=== PATIENT | male | born 1965 | race African-American/Black ===

== ENCOUNTER 2019-04-28 04:50 | Inpatient (IN) | payer MEDICARE, MEDICAID ==
[2019-04-27 14:17] LABS: INTERNATIONAL NORMALIZED RATIO 0.89 (0.93-1.1); PROTHROMBIN TIME 9.4 Seconds (9.6-11.5)
[2019-04-27 14:18] LABS: ALANINE AMINOTRANSFERASE 17 U/L (12-78); ALBUMIN 1.3 g/dL (3.4-5.0); ANION GAP 4 mmol/L (5-15); CALCIUM 7.8 mg/dL (8.5-10.1); CHLORIDE 112 mmol/L (98-107)
[2019-04-27 14:20] LABS: ALKALINE PHOSPHATASE 69 U/L (45-117); BILIRUBIN,TOTAL 0.6 mg/dL (0.2-1.0); CREATININE 2.21 mg/dL (0.7-1.3); TOTAL PROTEIN 5.1 g/dL (6.4-8.2)
[2019-04-27 14:28] LABS: MICROSCOPIC INDICATED
[2019-04-27 15:04] LABS: BASOPHILS % (AUTO) 0 % (0-1); EOSINOPHILS # (AUTO) 0.07 x10^3/uL (0-0.4); EOSINOPHILS % (AUTO) 1 % (1-7); LYMPHOCYTES # (AUTO) 2.68 x10^3/uL (1-3.4); LYMPHOCYTES % (AUTO) 20 % (22-44); MD SCAN; MEAN CORPUSCULAR HEMOGLOBIN 32.8 pg (27.5-34.5); MEAN CORPUSCULAR HGB CONC 32.6 g/dL (33.2-36.2); MEAN CORPUSCULAR VOLUME 100.6 fL (81-97); MONOCYTES # (AUTO) 1.12 x10^3/uL (0.2-0.8); MONOCYTES % (AUTO) 8 % (2-9); NEUTROPHILS # (AUTO) 9.81 x10^3/uL (1.8-6.8); NEUTROPHILS % (AUTO) 72 % (42-75); PLATELET COUNT 346 x10^3/uL (130-400); RED BLOOD COUNT 3.75 x10^6/uL (4.38-5.82); RED CELL DISTRIBUTION WIDTH 15.3 % (9.4-14.8)
[~2019-04-28] VITALS: Ht 172.7 cm; Wt 100.9 kg
[~2019-04-28 04:50] MED LIST: ACET325T26 PO; ASPI-650 PO; ATOR40TA78 PO; CARV12.52 PO; DOXY100T PO; FURO40TA6 PO; HYDR-3342 PO; ISOS60TA36 PO; NITR0.4T28 SL; None per pt; POTA10TA5 PO
[2019-04-28 05:22] VITALS: BP_SYST 164; BP_SYST 169; BP_DIAS 90; BP_DIAS 95
[2019-04-28] MEDS ORDERED: INSULIN LISPRO 100 UNITS/ML, PEN SQ-INSULIN SCH (05:30)
[2019-04-28] MEDS ORDERED: DO NOT GIVE MC SCH (05:30)
[2019-04-28] MEDS ORDERED: CHLORHEXIDINE 15 ML UDC MM SCH (05:30)
[2019-04-28] MEDS ORDERED: PHENYLEPHRINE 10 MG in SODIUM CHLORIDE 0.9% 249 ML IV PRN ×2 (07:30→12:58)
[2019-04-28] MEDS ORDERED: ALBUMIN HUMAN 5% 500 ML IV PRN (07:30)
[2019-04-28] MEDS ORDERED: REGULAR INSULIN 62.5 UNITS in SODIUM CHLORIDE 0.9% 249.375 ML IV PRN ×2 (07:30→12:58)
[2019-04-28] MEDS ORDERED: EPINEPHRINE 2 MG in SODIUM CHLORIDE 0.9% 248 ML IV SCH (07:30)
[2019-04-28] MEDS ORDERED: CEFUROXIME 1.5 GM in SODIUM CHLORIDE 0.9% 50 ML IVPB PRN (07:30)
[2019-04-28] MEDS ORDERED: VANCOMYCIN 1,300 MG in SODIUM CHLORIDE 0.9% 250 ML IV PRN (07:30)
[2019-04-28] MEDS ORDERED: MANNITOL PMX 20% 500 ML IVPB PRN (07:30)
[2019-04-28] MEDS ORDERED: POTASSIUM CHLORIDE 80 MEQ, SODIUM BICARBONATE 8.4% 10 MEQ, MAGNESIUM SULFATE 0.5 GM, LI... IV PRN (07:30)
[2019-04-28] MEDS ORDERED: DEXMEDETOMIDINE 200 MCG in SODIUM CHLORIDE 0.9% 48 ML IV SCH (07:30)
[2019-04-28] MEDS ORDERED: MIDAZOLAM 10MG/2 ML ONE (07:33)
[2019-04-28] MEDS ORDERED: FENTANYL PF 250 MCG/5ML ONE ×6 (07:33→10:20)
[2019-04-28] MEDS ORDERED: PROPOFOL 10 MG/ML, 20ML ONE (07:33)
[2019-04-28] MEDS ORDERED: AMINOCAPROIC ACID 250 MG/ML, 20ML ONE ×2 (07:34)
[2019-04-28] MEDS ORDERED: ROCURONIUM 10MG/ML,5ML ONE ×3 (07:34→10:19)
[2019-04-28] MEDS ORDERED: FUROSEMIDE 20 MG/2 ML ONE (07:51)
[2019-04-28] MEDS: DOCUSATE 100 MG CAPSULE PO SCH ×2 (09:00→21:00)
[2019-04-28] MEDS ORDERED: SODIUM CHLORIDE FLUSH 10ML SYR IVF SCH (09:00)
[2019-04-28] MEDS ORDERED: MUPIROCIN OINT 2%, 22GM TP SCH (09:00)
[2019-04-28] MEDS ORDERED: MAGNESIUM SULFATE PMX 2GM/50ML 0 ML ONE (09:27)
[2019-04-28] MEDS ORDERED: PROTAMINE SULFATE 10 MG/ML, 25ML ONE ×2 (10:20)
[2019-04-28] MEDS ORDERED: HYDROmorphone 2 MG/ML, 1ML ONE (10:30)
[2019-04-28] MEDS ORDERED: AMIODARONE 50 MG/ML, 3ML ONE (10:57)
[2019-04-28] MEDS ORDERED: SODIUM BICARB 8.4%, 50ML SYRINGE ONE ×2 (11:43→13:14)
[2019-04-28] MEDS ORDERED: SODIUM BICARBONATE 1 MEQ/ML, 50ML VIAL ONE (12:23)
[2019-04-28] MEDS ORDERED: methylPREDNISolone SOD SUCC 125 MG/2 ML ONE (12:23)
[2019-04-28] MEDS ORDERED: ALBUMIN HUMAN 25% 50 ML ONE (12:24)
[2019-04-28] MEDS ORDERED: HEPARIN 1,000 UNITS/ML, 30ML ONE (12:24)
[2019-04-28] MEDS ORDERED: POTASSIUM CHLORIDE 40MEQ/20ML IV ONE (12:24)
[2019-04-28] MEDS ORDERED: LIDOCAINE 2%, 20ML ONE (12:24)
[2019-04-28] MEDS ORDERED: DOBUTAMINE 250 MG in SODIUM CHLORIDE 0.9% 230 ML IV PRN (12:58)
[2019-04-28] MEDS ORDERED: SODIUM CHLORIDE 0.9% 1,000 ML IV PRN (12:58)
[2019-04-28] MEDS ORDERED: NITROGLYCERIN/D5W PMX 250 ML IV PRN (12:58)
[2019-04-28] MEDS ORDERED: VASOPRESSIN 50 UNIT in SODIUM CHLORIDE 0.9% 247.5 ML IV PRN (12:58)
[2019-04-28] MEDS ORDERED: PROCHLORPERAZINE 5 MG/ML, 2ML IVPush PRN (13:00)
[2019-04-28] MEDS ORDERED: HYDROcodone/APAP 5/325 TABLET PO PRN (13:00)
[2019-04-28] MEDS ORDERED: BISACODYL 10 MG SUPP PR PRN (13:00)
[2019-04-28] MEDS ORDERED: OXYcodone IR 5MG TABLET PO PRN (13:00)
[2019-04-28] MEDS ORDERED: SODIUM BICARB 8.4%, 50ML SYRINGE IV PRN (13:00)
[2019-04-28] MEDS ORDERED: ACETAMINOPHEN 650 MG SUPP PR PRN (13:00)
[2019-04-28] MEDS ORDERED: DEXTROSE 50%, 50ML SYRINGE IVPush PRN (13:00)
[2019-04-28] MEDS: KSCALE TO 4.5 IV SCH ×2 (13:00→19:00)
[2019-04-28] MEDS ORDERED: ONDANSETRON 2MG/ML, 2ML IVPush PRN (13:00)
[2019-04-28] MEDS ORDERED: CEFUROXIME 1.5 GM in SODIUM CHLORIDE 0.9% 50 ML IVPB SCH (13:00)
[2019-04-28] MEDS ORDERED: BISACODYL 5 MG EC TABLET PO PRN (13:00)
[2019-04-28] MEDS ORDERED: DEXTROSE 4 GM TAB.CHEW PO PRN (13:00)
[2019-04-28] MEDS ORDERED: ACETAMINOPHEN 325 MG TABLET PO PRN (13:00)
[2019-04-28] MEDS ORDERED: GLUCAGON 1 MG IM PRN (13:00)
[2019-04-28] MEDS ORDERED: INSULIN REGULAR 100 UNITS/ML, 3ML VIAL IVPush PRN (13:00)
[2019-04-28] MEDS: MAGNESIUM SULFATE 1 GM in SODIUM CHLORIDE 0.9% 50 ML IVPB SCH (13:00)
[2019-04-28 13:08] LABS: GLUCOSE BY BLOOD GAS ANALYZER 172 mg/dL (70-110); HEMOGLOBIN BY BLOOD GAS ANALYZ 13.7 g/dL (14.0-18.0); POTASSIUM BY BLOOD GAS ANALYZR 2.6 mmol/L (3.6-5.5)
[2019-04-28] MEDS ORDERED: MORPHINE SULFATE 4 MG/ML, 1ML ONE ×2 (13:19→20:54)
[2019-04-28 13:20] LABS: INTERNATIONAL NORMALIZED RATIO 1.02 (0.93-1.1); PROTHROMBIN TIME 10.7 Seconds (9.6-11.5)
[2019-04-28] MEDS ORDERED: POTASSIUM CHLORIDE 40 MEQ in SODIUM CHLORIDE 0.9% 100 ML IV ONE (13:30)
[2019-04-28] MEDS ORDERED: MIDAZOLAM 1 MG/ML, 2ML ONE ×2 (13:43→16:54)
[2019-04-28] MEDS: morphine SULFATE 10 MG/ML, 1ML IVPush PRN ×3 (13:45→23:32)
[2019-04-28] MEDS: FENTANYL PF 100 MCG/2ML IVPush PRN ×2 (13:47→15:59)
[2019-04-28] MEDS: MIDAZOLAM 1 MG/ML, 5ML IVPush PRN ×2 (13:50→15:27)
[2019-04-28] MEDS: DEXMEDETOMIDINE 200 MCG in SODIUM CHLORIDE 0.9% 48 ML IV PRN (13:52)
[2019-04-28] MEDS ORDERED: ALBUTEROL SULFATE 2.5 MG/3 ML ONE (14:55)
[2019-04-28] MEDS ORDERED: ALBUTEROL SULFATE 2.5 MG/3 ML NPPB ONE (16:00)
[2019-04-28] MEDS: INSULIN LISPRO 100 UNITS/ML, PEN SQ-INSULIN SCH ×2 (16:00→21:00)
[2019-04-28] MEDS ORDERED: MIDAZOLAM 1 MG/ML, 5ML IVPush PRN (16:00)
[2019-04-28] MEDS ORDERED: FENTANYL PF 100 MCG/2ML IVPush PRN (16:30)
[2019-04-28] MEDS ORDERED: LIDOCAINE-MPF 1%, 2ML ONE (16:46)
[2019-04-28 17:39] VITALS: BP 99/52
[2019-04-28] MEDS: LACTATED RINGERS 1,000 ML IV PRN ×3 (17:49→23:59)
[2019-04-28 17:55] VITALS: BP 103/56
[2019-04-28 18:13] VITALS: BP 113/62
[2019-04-28] MEDS: VANCOMYCIN 1,300 MG in SODIUM CHLORIDE 0.9% 250 ML IVPB SCH (18:51)
[2019-04-28 18:54] LABS: INTERNATIONAL NORMALIZED RATIO 0.97 (0.93-1.1); PROTHROMBIN TIME 10.2 Seconds (9.6-11.5)
[2019-04-28] MEDS ORDERED: SODIUM BICARB 8.4%, 50ML SYRINGE IVPush ONE (19:00)
[2019-04-28] MEDS ORDERED: POTASSIUM CHLORIDE PMX 100 ML IV ONE (19:00)
[2019-04-28 19:15] VITALS: BP 114/62
[2019-04-28] MEDS: SODIUM CHLORIDE FLUSH 10ML SYR IVF SCH (19:16)
[2019-04-28] MEDS ORDERED: ALBUTEROL SULFATE 2.5 MG/3 ML NPPB PRN (19:30)
[2019-04-28] MEDS: CEFUROXIME 1.5 GM in SODIUM CHLORIDE 0.9% 50 ML IVPB SCH (20:35)
[2019-04-28] MEDS: PROPOFOL 100 ML IV PRN (21:09)
[2019-04-28] MEDS: MUPIROCIN OINT 2%, 22GM NAS SCH (21:33)
[2019-04-29] MEDS: KSCALE TO 4.5 IV SCH ×2 (01:00→07:00)
[2019-04-29] MEDS ORDERED: POTASSIUM CHLORIDE PMX 100 ML IVPB SCH (01:00)
[2019-04-29] MEDS: morphine SULFATE 10 MG/ML, 1ML IVPush PRN (02:13)
[2019-04-29] MEDS: EPINEPHRINE 2 MG in SODIUM CHLORIDE 0.9% 248 ML IV PRN ×2 (02:14→19:21)
[2019-04-29] MEDS: INSULIN LISPRO 100 UNITS/ML, PEN SQ-INSULIN SCH ×4 (05:08→21:00)
[2019-04-29 06:49] LABS: ANION GAP 9 mmol/L (5-15); CALCIUM 6.7 mg/dL (8.5-10.1); CHLORIDE 117 mmol/L (98-107); CREATININE 2.92 mg/dL (0.7-1.3)
[2019-04-29 06:50] LABS: ALBUMIN 1.2 g/dL (3.4-5.0)
[2019-04-29 06:51] LABS: MEAN CORPUSCULAR HEMOGLOBIN 31.8 pg (27.5-34.5); MEAN CORPUSCULAR HGB CONC 33.4 g/dL (33.2-36.2); MEAN CORPUSCULAR VOLUME 95.2 fL (81-97); MEAN PLATELET VOLUME 8.2 fL (7.4-10.4); PLATELET COUNT 165 x10^3/uL (130-400); RED BLOOD COUNT 2.75 x10^6/uL (4.38-5.82); RED CELL DISTRIBUTION WIDTH 16.2 % (9.4-14.8)
[2019-04-29 06:53] LABS: INTERNATIONAL NORMALIZED RATIO 0.92 (0.93-1.1); PROTHROMBIN TIME 9.7 Seconds (9.6-11.5)
[2019-04-29 07:05] LABS: FIO2 80 %
[2019-04-29 07:22] LABS: BASOPHILS # (AUTO) 0.01 x10^3/uL (0-0.1); BASOPHILS % (AUTO) 0 % (0-1); EOSINOPHILS % (AUTO) 0 % (1-7); LYMPHOCYTES # (AUTO) 1.08 x10^3/uL (1-3.4); LYMPHOCYTES % (AUTO) 8 % (22-44); MD SCAN; MONOCYTES # (AUTO) 1.28 x10^3/uL (0.2-0.8); MONOCYTES % (AUTO) 9 % (2-9); NEUTROPHILS % (AUTO) 83 % (42-75)
[2019-04-29] MEDS: VANCOMYCIN 1,300 MG in SODIUM CHLORIDE 0.9% 250 ML IVPB SCH (07:25)
[2019-04-29] MEDS ORDERED: POTASSIUM CHLORIDE PMX 100 ML IVPB ONE (07:30)
[2019-04-29] MEDS: ASPIRIN 81 MG TABLET EC PO SCH (09:00)
[2019-04-29] MEDS: FENTANYL PF 100 MCG/2ML IVPush PRN ×4 (09:00→16:38)
[2019-04-29] MEDS: DOCUSATE 100 MG CAPSULE PO SCH ×2 (09:00→21:00)
[2019-04-29] MEDS: MUPIROCIN OINT 2%, 22GM NAS SCH ×2 (09:00→21:32)
[2019-04-29] MEDS: PROPOFOL 100 ML IV PRN ×3 (09:01→19:22)
[2019-04-29] MEDS: SODIUM CHLORIDE FLUSH 10ML SYR IVF SCH ×2 (10:09→21:31)
[2019-04-29] MEDS: CEFUROXIME 1.5 GM in SODIUM CHLORIDE 0.9% 50 ML IVPB SCH (10:13)
[2019-04-29] MEDS: MAGNESIUM SULFATE 1 GM in SODIUM CHLORIDE 0.9% 50 ML IVPB SCH (13:00)
--- NOTE | 2019-04-29 14:08 | NUR ---
TF GOAL if needed: w/ propofol: PROMOTE @ 75ML/HR off propofol: 80ml/hr
[2019-04-29] MEDS: MIDAZOLAM 1 MG/ML, 5ML IVPush PRN (17:43)
[2019-04-29 18:45] LABS: POTASSIUM,URINE RANDOM 60 mmol/L; SODIUM,URINE RANDOM 8 mmol/L
[2019-04-29 18:50] LABS: CHLORIDE,URINE RANDOM < 10 mmol/L
[2019-04-29] MEDS ORDERED: SODIUM CHLORIDE 0.9% 1,000ML IVBOLUS PRN (20:00)
[2019-04-29] MEDS: CHLORHEXIDINE 15 ML UDC MM SCH (21:00)
[2019-04-30] MEDS: PROPOFOL 100 ML IV PRN ×4 (01:53→21:58)
[2019-04-30 04:44] LABS: BASOPHILS # (AUTO) 0.01 x10^3/uL (0-0.1); BASOPHILS % (AUTO) 0 % (0-1); EOSINOPHILS # (AUTO) 0.03 x10^3/uL (0-0.4); EOSINOPHILS % (AUTO) 0 % (1-7); LYMPHOCYTES # (AUTO) 1.32 x10^3/uL (1-3.4); LYMPHOCYTES % (AUTO) 9 % (22-44); MD NO; MEAN CORPUSCULAR HEMOGLOBIN 32.4 pg (27.5-34.5); MEAN CORPUSCULAR HGB CONC 33.2 g/dL (33.2-36.2); MEAN CORPUSCULAR VOLUME 97.7 fL (81-97); MEAN PLATELET VOLUME 8.4 fL (7.4-10.4); MONOCYTES # (AUTO) 1.33 x10^3/uL (0.2-0.8); MONOCYTES % (AUTO) 9 % (2-9); NEUTROPHILS # (AUTO) 12.22 x10^3/uL (1.8-6.8); NEUTROPHILS % (AUTO) 82 % (42-75); PLATELET COUNT 173 x10^3/uL (130-400); RED CELL DISTRIBUTION WIDTH 16.4 % (9.4-14.8)
[2019-04-30 04:50] LABS: INTERNATIONAL NORMALIZED RATIO 0.91 (0.93-1.1); PROTHROMBIN TIME 9.6 Seconds (9.6-11.5)
[2019-04-30 04:51] LABS: ANION GAP 9 mmol/L (5-15); CALCIUM 6.9 mg/dL (8.5-10.1); CHLORIDE 117 mmol/L (98-107); CREATININE 3.69 mg/dL (0.7-1.3)
[2019-04-30] MEDS: INSULIN LISPRO 100 UNITS/ML, PEN SQ-INSULIN SCH ×4 (05:19→21:00)
[2019-04-30] MEDS: FENTANYL PF 100 MCG/2ML IVPush PRN ×3 (07:25→16:37)
[2019-04-30] MEDS: DOCUSATE 100 MG CAPSULE PO SCH ×2 (08:25→20:52)
[2019-04-30] MEDS: CHLORHEXIDINE 15 ML UDC MM SCH ×2 (08:25→20:53)
[2019-04-30] MEDS: ASPIRIN 81 MG TABLET EC PO SCH (08:25)
[2019-04-30] MEDS ORDERED: METOPROLOL TARTRATE 25 MG TABLET ONE (10:39)
[2019-04-30] MEDS: SODIUM CHLORIDE FLUSH 10ML SYR IVF SCH ×2 (10:43→21:07)
[2019-04-30] MEDS: METOPROLOL TARTRATE 25 MG TABLET PO SCH ×2 (10:44→18:00)
[2019-04-30] MEDS: MUPIROCIN OINT 2%, 22GM NAS SCH ×2 (10:44→21:07)
[2019-04-30] MEDS: MAGNESIUM SULFATE 1 GM in SODIUM CHLORIDE 0.9% 50 ML IVPB SCH (10:46)
[2019-04-30] MEDS: DEXMEDETOMIDINE 200 MCG in SODIUM CHLORIDE 0.9% 48 ML IV PRN (16:10)
[2019-05-01] MEDS: PROPOFOL 100 ML IV PRN (02:50)
[2019-05-01 04:54] LABS: MEAN CORPUSCULAR HEMOGLOBIN 32.6 pg (27.5-34.5); MEAN CORPUSCULAR HGB CONC 33.2 g/dL (33.2-36.2); MEAN CORPUSCULAR VOLUME 98.1 fL (81-97); MEAN PLATELET VOLUME 8.5 fL (7.4-10.4); PLATELET COUNT 204 x10^3/uL (130-400); RED BLOOD COUNT 2.44 x10^6/uL (4.38-5.82)
[2019-05-01 04:57] LABS: ANION GAP 8 mmol/L (5-15); CALCIUM 7.5 mg/dL (8.5-10.1); CHLORIDE 117 mmol/L (98-107); CREATININE 3.58 mg/dL (0.7-1.3)
[2019-05-01 05:33] LABS: MD YES
[2019-05-01 05:35] LABS: ANISOCYTOSIS 1+; LYMPH#(MANUAL) 2.03 x10^3/uL (1-3.4); LYMPHS% (MANUAL) 15 % (22-44); MONOS#(MANUAL) 0.81 x10^3/uL (0.3-2.7); MONOS% (MANUAL) 6 % (2-9); NRBC % (MANUAL) 1 % (0-1); SEG#(MANUAL) 10.67 x10^3/uL (1.8-6.8); SEGS% (MANUAL) 79 % (42-75)
[2019-05-01 05:36] LABS: <PLATELET ESTIMATE> ADEQUATE; <PLT MORPHOLOGY> NORMAL PLT MORPH; POLYCHROMASIA 1+
[2019-05-01] MEDS: INSULIN LISPRO 100 UNITS/ML, PEN SQ-INSULIN SCH ×4 (06:21→21:00)
[2019-05-01] MEDS: METOPROLOL TARTRATE 25 MG TABLET PO SCH ×2 (06:28→17:36)
[2019-05-01] MEDS: CHLORHEXIDINE 15 ML UDC MM SCH (11:23)
[2019-05-01] MEDS: DOCUSATE 100 MG CAPSULE PO SCH ×2 (11:23→21:11)
[2019-05-01] MEDS: ASPIRIN 81 MG TABLET EC PO SCH (11:23)
[2019-05-01] MEDS: MUPIROCIN OINT 2%, 22GM NAS SCH ×2 (11:23→21:11)
[2019-05-01] MEDS: SODIUM CHLORIDE FLUSH 10ML SYR IVF SCH ×2 (11:24→21:11)
[2019-05-01] MEDS: HYDROcodone/APAP 10/325 MG TABLET PO PRN (17:37)
[2019-05-02] MEDS: HYDROcodone/APAP 10/325 MG TABLET PO PRN ×4 (00:01→20:52)
[2019-05-02 04:50] LABS: BASOPHILS % (AUTO) 0 % (0-1); EOSINOPHILS # (AUTO) 0.37 x10^3/uL (0-0.4); EOSINOPHILS % (AUTO) 3 % (1-7); LYMPHOCYTES # (AUTO) 2.03 x10^3/uL (1-3.4); LYMPHOCYTES % (AUTO) 16 % (22-44); MD NO; MEAN CORPUSCULAR HEMOGLOBIN 32.9 pg (27.5-34.5); MEAN CORPUSCULAR HGB CONC 33.3 g/dL (33.2-36.2); MEAN CORPUSCULAR VOLUME 98.6 fL (81-97); MEAN PLATELET VOLUME 8.2 fL (7.4-10.4); MONOCYTES % (AUTO) 9 % (2-9); NEUTROPHILS # (AUTO) 9.38 x10^3/uL (1.8-6.8); NEUTROPHILS % (AUTO) 73 % (42-75); PLATELET COUNT 269 x10^3/uL (130-400); RED BLOOD COUNT 2.61 x10^6/uL (4.38-5.82); RED CELL DISTRIBUTION WIDTH 16.1 % (9.4-14.8)
[2019-05-02] MEDS: METOPROLOL TARTRATE 25 MG TABLET PO SCH ×2 (05:16→18:11)
[2019-05-02 05:59] LABS: ANION GAP 6 mmol/L (5-15); CALCIUM 7.3 mg/dL (8.5-10.1); CHLORIDE 110 mmol/L (98-107); CREATININE 3.45 mg/dL (0.7-1.3)
[2019-05-02] MEDS: INSULIN LISPRO 100 UNITS/ML, PEN SQ-INSULIN SCH ×2 (07:00→11:00)
[2019-05-02] MEDS: MUPIROCIN OINT 2%, 22GM NAS SCH ×2 (09:08→20:52)
[2019-05-02] MEDS: DOCUSATE 100 MG CAPSULE PO SCH ×2 (09:08→20:52)
[2019-05-02] MEDS: ASPIRIN 81 MG TABLET EC PO SCH (09:08)
[2019-05-02] MEDS: AMLODIPINE 10 MG TAB PO SCH (09:08)
[2019-05-02] MEDS: SODIUM CHLORIDE FLUSH 10ML SYR IVF SCH ×2 (09:08→20:53)
[2019-05-02 13:35] VITALS: BP 121/78
[2019-05-02 20:50] VITALS: BP 136/88
[2019-05-03 00:29] VITALS: BP 149/87
[2019-05-03 05:12] VITALS: BP 146/94
[2019-05-03] MEDS: METOPROLOL TARTRATE 25 MG TABLET PO SCH ×2 (05:13→16:56)
[2019-05-03 05:54] LABS: BASOPHILS % (AUTO) 0 % (0-1); EOSINOPHILS # (AUTO) 0.37 x10^3/uL (0-0.4); EOSINOPHILS % (AUTO) 3 % (1-7); LYMPHOCYTES # (AUTO) 1.84 x10^3/uL (1-3.4); LYMPHOCYTES % (AUTO) 16 % (22-44); MD NO; MEAN CORPUSCULAR HEMOGLOBIN 32.4 pg (27.5-34.5); MEAN CORPUSCULAR HGB CONC 33.3 g/dL (33.2-36.2); MEAN CORPUSCULAR VOLUME 97.5 fL (81-97); MEAN PLATELET VOLUME 7.9 fL (7.4-10.4); MONOCYTES # (AUTO) 1.04 x10^3/uL (0.2-0.8); MONOCYTES % (AUTO) 9 % (2-9); NEUTROPHILS # (AUTO) 8.39 x10^3/uL (1.8-6.8); NEUTROPHILS % (AUTO) 72 % (42-75); PLATELET COUNT 304 x10^3/uL (130-400); RED BLOOD COUNT 2.53 x10^6/uL (4.38-5.82); RED CELL DISTRIBUTION WIDTH 15.6 % (9.4-14.8)
[2019-05-03 10:35] LABS: ANION GAP 8 mmol/L (5-15); CHLORIDE 109 mmol/L (98-107); CREATININE 3.27 mg/dL (0.7-1.3)
[2019-05-03] MEDS: ASPIRIN 81 MG TABLET EC PO SCH (11:12)
[2019-05-03] MEDS: DOCUSATE 100 MG CAPSULE PO SCH ×2 (11:13→21:02)
[2019-05-03] MEDS: AMLODIPINE 10 MG TAB PO SCH (11:13)
[2019-05-03] MEDS: MUPIROCIN OINT 2%, 22GM NAS SCH (11:16)
[2019-05-03] MEDS: SODIUM CHLORIDE FLUSH 10ML SYR IVF SCH ×2 (11:24→21:03)
[2019-05-03] MEDS ORDERED: POTASSIUM CHLORIDE 20 MEQ TAB.ER.PRT PO ONE (11:30)
[2019-05-03] MEDS: HEPARIN 5,000 UNITS/ML, 1ML SQ SCH ×2 (12:28→21:02)
[2019-05-03 14:34] VITALS: BP 134/83
[2019-05-03] MEDS: POTASSIUM CHLORIDE 20 MEQ TAB.ER.PRT PO SCH (16:55)
[2019-05-03 19:50] VITALS: BP 137/82
[2019-05-04] MEDS: HYDROcodone/APAP 10/325 MG TABLET PO PRN ×3 (00:25→20:32)
[2019-05-04 01:35] VITALS: BP 145/81
[2019-05-04] MEDS: HEPARIN 5,000 UNITS/ML, 1ML SQ SCH ×3 (05:34→20:32)
[2019-05-04] MEDS: METOPROLOL TARTRATE 25 MG TABLET PO SCH ×2 (05:34→18:50)
[2019-05-04 05:58] LABS: ANION GAP 7 mmol/L (5-15); CALCIUM 7.5 mg/dL (8.5-10.1); CHLORIDE 109 mmol/L (98-107); CREATININE 3.29 mg/dL (0.7-1.3)
[2019-05-04 08:11] VITALS: BP 143/91
[2019-05-04] MEDS: ASPIRIN 81 MG TABLET EC PO SCH (08:54)
[2019-05-04] MEDS: POTASSIUM CHLORIDE 20 MEQ TAB.ER.PRT PO SCH (08:54)
[2019-05-04] MEDS: DOCUSATE 100 MG CAPSULE PO SCH ×2 (08:55→20:32)
[2019-05-04] MEDS: AMLODIPINE 10 MG TAB PO SCH (08:55)
[2019-05-04] MEDS: SODIUM CHLORIDE FLUSH 10ML SYR IVF SCH ×2 (08:56→20:32)
[2019-05-04] MEDS ORDERED: POTASSIUM CHLORIDE 20 MEQ TAB.ER.PRT PO ONE (09:30)
[2019-05-04] MEDS: FUROSEMIDE 20 MG TABLET PO SCH (11:35)
[2019-05-04] MEDS ORDERED: FURO20TA3 PO (14:40)
[2019-05-04] MEDS ORDERED: ASPI81TA45 PO (14:40)
[2019-05-04] MEDS ORDERED: AMLO10TA8 PO (14:40)
[2019-05-04] MEDS ORDERED: HYDR-3237 PO (14:40)
[2019-05-04] MEDS ORDERED: POTA20TA6 PO (14:40)
[2019-05-04] MEDS ORDERED: METO25TA35 PO (14:40)
[2019-05-04 15:54] VITALS: BP 129/81
[2019-05-04 18:40] VITALS: BP_SYST 129; BP_SYST 143; BP_DIAS 81; BP_DIAS 82
[2019-05-05 01:38] VITALS: BP 145/92
[2019-05-05] MEDS: HEPARIN 5,000 UNITS/ML, 1ML SQ SCH ×2 (05:00→13:02)
[2019-05-05] MEDS: HYDROcodone/APAP 10/325 MG TABLET PO PRN (05:00)
[2019-05-05] MEDS: METOPROLOL TARTRATE 25 MG TABLET PO SCH (05:01)
[2019-05-05 07:38] LABS: ANION GAP 8 mmol/L (5-15); CALCIUM 7.5 mg/dL (8.5-10.1); CHLORIDE 110 mmol/L (98-107); CREATININE 3.25 mg/dL (0.7-1.3)
[2019-05-05 08:23] VITALS: BP 141/83
[2019-05-05] MEDS: AMLODIPINE 10 MG TAB PO SCH (08:45)
[2019-05-05] MEDS: ASPIRIN 81 MG TABLET EC PO SCH (08:45)
[2019-05-05] MEDS: DOCUSATE 100 MG CAPSULE PO SCH (08:46)
[2019-05-05] MEDS: SODIUM CHLORIDE FLUSH 10ML SYR IVF SCH (08:46)
[2019-05-05] MEDS: FUROSEMIDE 20 MG TABLET PO SCH (08:46)
[2019-05-05] MEDS ORDERED: POTASSIUM CHLORIDE 20 MEQ TAB.ER.PRT PO SCH (09:00)
[2019-05-05] MEDS ORDERED: FUROSEMIDE 40 MG TABLET PO SCH (09:00)
[2019-05-05] MEDS ORDERED: FUROSEMIDE 10 MG/ML ORAL SOL PO ONE (10:00)
[2019-05-05] MEDS ORDERED: FUROSEMIDE 20 MG TABLET ONE (10:02)
[2019-05-05] MEDS ORDERED: FURO40TA6 PO (10:28)
[2019-05-05] MEDS ORDERED: FUROSEMIDE 20 MG TABLET PO ONE (10:30)
[2019-05-05 12:46] VITALS: BP 137/78
== END 2019-05-05 14:05 | DRG 219 ==
LOC: 5SO 04:50 → CSU 10:07 → 5SO 05-02 12:39
PROVIDERS: ADMIT Thoracic Surgery (Cardiothoracic Vascular Surgery); ATTEND Thoracic Surgery (Cardiothoracic Vascular Surgery)
PROC: B24BZZ4 Ultrasonography of Heart with Aorta, Transesophageal (ICD-10-PCS; 2019-04-28)
PROC: 5A1221Z Performance of Cardiac Output, Continuous (ICD-10-PCS; 2019-04-28)
PROC: 0BJ08ZZ Inspection of Tracheobronchial Tree, Via Natural or Artificial Opening Endoscopic (ICD-10-PCS; 2019-04-28)
PROC: 30233N1 Transfusion of Nonautologous Red Blood Cells into Peripheral Vein, Percutaneous Approach (ICD-10-PCS; 2019-04-28)
PROC: 03HY32Z Insertion of Monitoring Device into Upper Artery, Percutaneous Approach (ICD-10-PCS; 2019-04-28)
PROC: 05HY33Z Insertion of Infusion Device into Upper Vein, Percutaneous Approach (ICD-10-PCS; 2019-04-28)
PROC: 5A1945Z Respiratory Ventilation, 24-96 Consecutive Hours (ICD-10-PCS; 2019-04-28)
PROC: 02RF08Z Replacement of Aortic Valve with Zooplastic Tissue, Open Approach (ICD-10-PCS; principal; 2019-04-28 08:00)
PROC: 0W9B30Z Drainage of Left Pleural Cavity with Drainage Device, Percutaneous Approach (ICD-10-PCS; 2019-04-29)
DX: I35.1 Nonrheumatic aortic (valve) insufficiency (principal); I50.43 Acute on chronic combined systolic (congestive) and diastolic (congestive) heart failure; J96.01 Acute respiratory failure with hypoxia; E87.0 Hyperosmolality and hypernatremia; I13.0 Hypertensive heart and chronic kidney disease with heart failure and stage 1 through stage 4 chronic kidney disease, or unspecified chronic kidney disease; N17.9 Acute kidney failure, unspecified; N04.9 Nephrotic syndrome with unspecified morphologic changes; D64.9 Anemia, unspecified; E78.5 Hyperlipidemia, unspecified; E87.6 Hypokalemia; F17.200 Nicotine dependence, unspecified, uncomplicated; F31.9 Bipolar disorder, unspecified; I95.81 Postprocedural hypotension; N18.9 Chronic kidney disease, unspecified; Z91.19 Patient's noncompliance with other medical treatment and regimen; Z95.3 Presence of xenogenic heart valve; Z79.899 Other long term (current) drug therapy
CPT/HCPCS: 36415; 36600; 71045; 71046; 74018; 80048; 80053; 81001; 82040; 82330; 82436; 82570; 82800; 82803; 82810; 82947; 82962; 83036; 83735; 84132; 84133; 84155; 84156; 84165; 84166; 84295; 84300; 85014; 85018; 85025; 85049; 85347; 85610; 85730; 86160; 86162; 86256; 86706; 86803; 86850; 86900; 86923; 87015; 87070; 87075; 87081; 87102; 87116; 87205; 87206; 87340; 88305; 93005; 93312; 93321; 93325; 93880; 94002; 94003; 94640; C1768; G0378; J0697; J1170; J1644; J1815; J2250; J2704; J2720; J3010; J3370; J3475; J3480; J7613; P9045; P9047; C1760; J0171; J0282; J1940; J2270; J2370; J2930; J7030; J7050; J7120; P9016

== ENCOUNTER → 2020-10-26 | Outpatient (CLI) | payer MEDICARE, MEDICAID ==
[~2020-10-26] MED LIST changes: +AMLO-211 PO; -ASPI-650 PO; +ASPI325T20 PO; +ASPI81TA45 PO; +FURO20TA3 PO; +HYDR-3237 PO; +METO25TA35 PO; +POTA20TA6 PO
== END | disposition home or self-care (01) ==
LOC: RAD 11:56
PROVIDERS: ATTEND Internal Medicine Nephrology
DX: N05.2 Unspecified nephritic syndrome with diffuse membranous glomerulonephritis (principal)
CPT/HCPCS: 71046